=== PATIENT | male | born 1995 | race Caucasian/White ===

== ENCOUNTER → 2018-05-01 07:26 | Outpatient (CLI) | payer OTHER, SELFPAY ==
--- NOTE | 2018-05-01 | DI.MRI.S_ITS ---
PROCEDURE: MR LUMBAR SPINE WO CON INDICATIONS: LOW BACK PAIN TECHNIQUE: Noncontrast sagittal T1 spin echo and T2 fast echo, sagittal STIR, axial T1 and T2 fast spin echo through the lumbar spine. In cases with scoliosis, additional coronal T2 fast spin echo may be performed. COMPARISON: None. FINDINGS: Image quality: Excellent. Alignment and Curvature: There is normal bony alignment. Bone Marrow: Marrow is of normal overall signal. No acute vertebral body compression fractures. Spinal Cord: Conus medullaris terminates at the T12-L1 level. Visualized cord demonstrates normal signal and size. Paraspinous Soft Tissues: No paravertebral masses. L1-L2: Normal appearance. L2-L3: Normal appearance. L3-L4: Normal appearance. L4-L5: Bilateral facet arthropathy. No definite central canal narrowing. The lateral recesses appear patent. No foraminal stenosis. L5-S1: Broad-based posterior disc bulge and bilateral facet arthropathy. Minimal central canal narrowing. Minimal narrowing of the right lateral recess but the left lateral recess appears grossly patent. No foraminal stenoses. IMPRESSION: Minimal lower lumbar degenerative disc and facet disease as above. No high-grade central canal or foraminal narrowing. Minimal asymmetric narrowing of the right L5-S1 lateral recess although this MR appearance is quite subtle recommend correlation to clinical exam findings. Dictated by: Mt Amaral M.D. on 05/01/2018 at 8:24 Approved by: Mt Amaral M.D. on 05/01/2018 at 8:28
== END ==
PROVIDERS: Visit Provider Family Medicine
DX: M54.5 Low back pain (principal)
CPT/HCPCS: 72148